=== PATIENT | female | born 1990 | race African-American/Black ===

== ENCOUNTER 2024-10-01 01:49 | Emergency (ER) | payer MEDICAID ==
[~2024-10-01] VITALS: Ht 162.6 cm; Wt 55.0 kg
[2024-10-01 01:53] VITALS: BP 162/96; PULSE 102; RESP 16; TEMP 98.5; O2SAT 100
[2024-10-01] MEDS ORDERED: ACET-2708 MT (05:13)
== END 2024-10-01 05:54 | disposition home or self-care (01) ==
LOC: ER 01:49
DX: S52.021D Displaced fracture of olecranon process without intraarticular extension of right ulna, subsequent encounter for closed fracture with routine healing (principal); F31.9 Bipolar disorder, unspecified; F15.90 Other stimulant use, unspecified, uncomplicated; X58.XXXA Exposure to other specified factors, initial encounter
CPT/HCPCS: 73070; 81025; 99283; A4565